=== PATIENT | female | born 2000 | race Caucasian/White ===

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

== ENCOUNTER 2019-03-19 15:01 | Emergency (ER) | payer MEDICAID ==
[~2019-03-19] VITALS: Ht 162.6 cm; Wt 75.0 kg
[2019-03-19 15:07] VITALS: Ht 162.6 cm; Wt 75.0 kg
[2019-03-19 15:40] LABS: BASOPHILS 0.6 % (0-2); EOSINOPHILS 8.3 % (0-7); HEMATOCRIT 33.2 % (36.0-48.0); IMMATURE GRANULOCYTES 0.1 % (0-5); LYMPHOCYTES 42.4 % (15-50); MCH 28.7 pg (26.0-34.0); MCHC 33.1 g/dL (31.0-37.0); MCV 86.7 fL (80.0-100.0); MEAN PLATELET VOLUME 10.3 fL (7.4-10.4); MONOCYTES 7.7 % (2-11); NEUTROPHILS 40.9 % (40-80); PLATELET COUNT 196 10x3/uL (130-400); RBC 3.83 10x6/uL (4.00-5.40); RDW 13.1 % (11.5-14.5); WBC 6.9 10x3/uL (4.8-10.8)
[2019-03-19 15:55] LABS: ALBUMIN 3.2 g/dL (3.4-5.0); ALKALINE PHOSPHATASE 55 U/L (46-116); ALT (SGPT) 15 U/L (10-68); BILIRUBIN - TOTAL 0.34 mg/dL (0.2-1.3); CALC OSMOLALITY 269 mosm/kg (275-300); CALCIUM 7.8 mg/dL (8.5-10.1); CARBON DIOXIDE 25.5 mmol/L (21.0-32.0); CHLORIDE - SERUM 105 mmol/L (98-107); CREATINE KINASE 45 UL (21-215); CREATININE - SERUM 0.7 mg/dL (0.6-1.3); GLUCOSE 92 mg/dL (74-106); POTASSIUM - SERUM 3.4 mmol/L (3.5-5.1); PROTEIN - SERUM 6.7 g/dL (6.4-8.2); SODIUM 135 mmol/L (136-145); UREA NITROGEN 13 mg/dL (7-18); eGFR NON AFRICAN AMERICAN > 90 mL/min (90-120)
[2019-03-19 17:57] LABS: UDS - AMPHET POSITIVE QUAL (NEGATIVE); UDS - BARB NEGATIVE QUAL (NEGATIVE); UDS - BENZO NEGATIVE QUAL (NEGATIVE); UDS - COCAINE NEGATIVE QUAL (NEGATIVE); UDS - OPIATE NEGATIVE QUAL (NEGATIVE); UDS - PCP NEGATIVE QUAL (NEGATIVE); UDS - THC NEGATIVE QUAL (NEGATIVE)
[2019-03-19 18:05] LABS: APPEARANCE CLEAR (CLEAR); BILIRUBIN NEGATIVE (NEGATIVE); COLOR YELLOW (YELLOW); GLUCOSE NEGATIVE (NEGATIVE); KETONE NEGATIVE (NEGATIVE); NITRITE NEGATIVE (NEGATIVE); PROTEIN NEGATIVE (NEGATIVE); UROBILINOGEN NORMAL (NORMAL)
[2019-03-19 18:06] LABS: EPITHELIAL CELLS 0-5 /hpf (0-5); WHITE CELLS - URINE 0-5 /hpf (0-5)
[2019-03-19 18:07] LABS: BACTERIA MODERATE /hpf (NONE SEEN)
[2019-03-19 18:08] LABS: HCG URINE NEGATIVE (NEGATIVE)
[2019-03-19 18:26] VITALS: BP 114/62
== END 2019-03-19 18:27 | disposition home or self-care (01) ==
LOC: D.ER 15:01
PROVIDERS: Family Medicine
DX: O26.899 Other specified pregnancy related conditions, unspecified trimester (principal); Z3A.00 Weeks of gestation of pregnancy not specified; R55 Syncope and collapse; O99.320 Drug use complicating pregnancy, unspecified trimester

== ENCOUNTER 2019-03-29 23:25 | Emergency (ER) | payer SELFPAY ==
[2019-03-29 23:25] VITALS: BMI 19.9
[2019-03-30 00:35] LABS: HEMATOCRIT 35.7 % (36.0-48.0); HEMOGLOBIN 12.4 g/dL (12-16); LYMPHOCYTES 36.5 % (15-50); MCH 29.7 pg (26.0-34.0); MCHC 34.7 g/dL (31.0-37.0); MCV 85.6 fL (80.0-100.0); MEAN PLATELET VOLUME 9.8 fL (7.4-10.4); NEUTROPHILS 54.3 % (40-80); PLATELET COUNT 201 10x3/uL (130-400); RBC 4.17 10x6/uL (4.00-5.40); RDW 12.9 % (11.5-14.5); WBC 8.3 10x3/uL (4.8-10.8)
[2019-03-30 00:42] LABS: HCG SERUM NEGATIVE (NEGATIVE)
[2019-03-30 00:48] LABS: ALBUMIN 3.8 g/dL (3.4-5.0); ALKALINE PHOSPHATASE 51 U/L (46-116); ALT (SGPT) 20 U/L (10-68); BILIRUBIN - TOTAL 0.36 mg/dL (0.2-1.3); CALC OSMOLALITY 278 mosm/kg (275-300); CALCIUM 8.7 mg/dL (8.5-10.1); CARBON DIOXIDE 23.7 mmol/L (21.0-32.0); CHLORIDE - SERUM 105 mmol/L (98-107); CREATININE - SERUM 0.7 mg/dL (0.6-1.3); GLUCOSE 94 mg/dL (74-106); POTASSIUM - SERUM 3.8 mmol/L (3.5-5.1); PROTEIN - SERUM 7.9 g/dL (6.4-8.2); SODIUM 139 mmol/L (136-145); UREA NITROGEN 15 mg/dL (7-18); eGFR NON AFRICAN AMERICAN > 90 mL/min (90-120)
[2019-03-30 00:54] LABS: HCG - QUANTITATIVE (MATERNAL) 0 mIU/mL
[2019-03-30] MEDS ORDERED: CYCLOBENZAPRINE10 MG PO (03:24)
[2019-03-30] MEDS ORDERED: IBUPROFEN800 MG PO (03:24)
[2019-03-30] MEDS ORDERED: ACETAMINOPHEN500 M1 PO (03:24)
[2019-03-30 04:58] VITALS: BP 106/77
== END 2019-03-30 04:59 | disposition home or self-care (01) ==
LOC: D.ER 23:25
PROVIDERS: Family Medicine
DX: S50.01XA Contusion of right elbow, initial encounter (principal); S50.11XA Contusion of right forearm, initial encounter; V03.90XA Pedestrian on foot injured in collision with car, pick-up truck or van, unspecified whether traffic or nontraffic accident, initial encounter; Y93.89 Activity, other specified; Y92.410 Unspecified street and highway as the place of occurrence of the external cause

== ENCOUNTER 2020-02-15 13:44 | Emergency (ER) | payer SELFPAY ==
[2019-12-05 01:04] VITALS: BMI 25.8
[~2020-02-15 13:44] MED LIST: ACETAMINOPHEN500 M1 PO; CYCLOBENZAPRINE10 MG PO; IBUPROFEN800 MG PO; KEPPRA500 MG; KEPPRA500 MG PO
== END 2020-02-29 17:48 | disposition left against medical advice (07) ==
LOC: D.ER 13:44
DX: R25.1 Tremor, unspecified (principal)

== ENCOUNTER 2020-06-25 12:08 | Emergency (ER) | payer SELFPAY ==
[~2020-06-25] VITALS: Ht 162.6 cm; Wt 90.9 kg
[2020-06-25 12:23] VITALS: BP 135/85; Ht 162.6 cm; Wt 90.9 kg
[2020-06-25 14:19] LABS: UDS - AMPHET POSITIVE QUAL (NEGATIVE); UDS - BARB NEGATIVE QUAL (NEGATIVE); UDS - BENZO NEGATIVE QUAL (NEGATIVE); UDS - COCAINE NEGATIVE QUAL (NEGATIVE); UDS - OPIATE NEGATIVE QUAL (NEGATIVE); UDS - PCP NEGATIVE QUAL (NEGATIVE); UDS - THC NEGATIVE QUAL (NEGATIVE)
[2020-06-25 15:02] LABS: BASOPHILS 0.5 % (0-2); EOSINOPHILS 2.4 % (0-7); HEMATOCRIT 35.2 % (36.0-48.0); IMMATURE GRANULOCYTES 0.2 % (0-5); LYMPHOCYTES 26.1 % (15-50); MCH 30.5 pg (26.0-34.0); MCHC 34.1 g/dL (31.0-37.0); MCV 89.3 fL (80.0-100.0); MEAN PLATELET VOLUME 10.2 fL (7.4-10.4); MONOCYTES 11.7 % (2-11); NEUTROPHILS 59.1 % (40-80); PLATELET COUNT 211 10x3/uL (130-400); RBC 3.94 10x6/uL (4.00-5.40); RDW 12.2 % (11.5-14.5); WBC 10.9 10x3/uL (4.8-10.8)
[2020-06-25 15:13] LABS: BILIRUBIN NEGATIVE (NEGATIVE); KETONE MODERATE mg/dL (NEGATIVE); NITRITE NEGATIVE (NEGATIVE); UROBILINOGEN NORMAL (NORMAL)
[2020-06-25 15:14] LABS: BACTERIA MODERATE /hpf (NONE SEEN); RED CELLS - URINE 0-5 /hpf (0-5)
[2020-06-25 15:17] LABS: CALC OSMOLALITY 278 mosm/kg (275-300); CALCIUM 8.7 mg/dL (8.5-10.1); CARBON DIOXIDE 26.8 mmol/L (21.0-32.0); CHLORIDE - SERUM 104 mmol/L (98-107); CREATININE - SERUM 0.9 mg/dL (0.6-1.3); GLUCOSE 86 mg/dL (74-106); POTASSIUM - SERUM 3.6 mmol/L (3.5-5.1); SODIUM 140 mmol/L (136-145); UREA NITROGEN 16 mg/dL (7-18); eGFR NON AFRICAN AMERICAN 84 mL/min (90-120)
[2020-06-25 15:17] LABS: HCG URINE NEGATIVE (NEGATIVE)
[2020-06-25 15:25] LABS: ALBUMIN 4.3 g/dL (3.4-5.0); ALKALINE PHOSPHATASE 60 U/L (30-120); ALT (SGPT) 46 U/L (10-68); BILIRUBIN - TOTAL 0.62 mg/dL (0.2-1.3); MAGNESIUM - SERUM 2.2 mg/dL (1.8-2.4); PROTEIN - SERUM 8.2 g/dL (6.4-8.2)
[2020-06-25] MEDS ORDERED: CLEOCIN HCL300 MG PO (16:12)
== END 2020-06-25 16:26 | disposition home or self-care (01) ==
LOC: D.ER 12:08
PROVIDERS: Emergency Medicine
DX: F15.10 Other stimulant abuse, uncomplicated (principal); L03.114 Cellulitis of left upper limb

== ENCOUNTER 2020-07-10 03:23 | Emergency (ER) | payer SELFPAY ==
[~2020-07-10] VITALS: Ht 162.6 cm; Wt 88.6 kg
[~2020-07-10 03:23] MED LIST changes: +CLEOCIN HCL300 MG PO
[2020-07-10 03:24] VITALS: Ht 162.6 cm; Wt 88.6 kg
[2020-07-10 04:03] LABS: CALC OSMOLALITY 281 mosm/kg (275-300); CALCIUM 9.2 mg/dL (8.5-10.1); CARBON DIOXIDE 24.7 mmol/L (21.0-32.0); CHLORIDE - SERUM 105 mmol/L (98-107); CREATININE - SERUM 0.9 mg/dL (0.6-1.3); GLUCOSE 105 mg/dL (74-106); POTASSIUM - SERUM 3.3 mmol/L (3.5-5.1); SODIUM 142 mmol/L (136-145); UREA NITROGEN 9 mg/dL (7-18); eGFR NON AFRICAN AMERICAN 84 mL/min (90-120)
[2020-07-10 04:06] LABS: BASOPHILS 0.5 % (0-2); EOSINOPHILS 4.2 % (0-7); HEMATOCRIT 42.4 % (36.0-48.0); HEMOGLOBIN 14.1 g/dL (12-16); IMMATURE GRANULOCYTES 0.9 % (0-5); LYMPHOCYTES 26.2 % (15-50); MCH 29.6 pg (26.0-34.0); MCHC 33.3 g/dL (31.0-37.0); MCV 89.1 fL (80.0-100.0); MEAN PLATELET VOLUME 12.7 fL (7.4-10.4); MONOCYTES 8.2 % (2-11); PLATELET COUNT 186 10x3/uL (130-400); RBC 4.76 10x6/uL (4.00-5.40); RDW 12.2 % (11.5-14.5); WBC 9.1 10x3/uL (4.8-10.8)
[2020-07-10 04:20] LABS: ALBUMIN 4.3 g/dL (3.4-5.0); ALKALINE PHOSPHATASE 68 U/L (30-120); ALT (SGPT) 27 U/L (10-68); BILIRUBIN - TOTAL 0.39 mg/dL (0.2-1.3); CKMB 1.2 U/L (0.0-3.6); CREATINE KINASE 121 UL (21-215); MAGNESIUM - SERUM 2.3 mg/dL (1.8-2.4); PROTEIN - SERUM 8.5 g/dL (6.4-8.2)
[2020-07-10 04:23] LABS: TROPONIN-I < 0.017 ng/mL (0.000-0.060)
[2020-07-10 05:37] LABS: UDS - AMPHET POSITIVE QUAL (NEGATIVE); UDS - BARB NEGATIVE QUAL (NEGATIVE); UDS - BENZO NEGATIVE QUAL (NEGATIVE); UDS - COCAINE NEGATIVE QUAL (NEGATIVE); UDS - OPIATE NEGATIVE QUAL (NEGATIVE); UDS - PCP NEGATIVE QUAL (NEGATIVE); UDS - THC POSITIVE QUAL (NEGATIVE)
[2020-07-10 05:43] LABS: BACTERIA MANY /HPF (NONE SEEN); BILIRUBIN NEGATIVE (NEGATIVE); KETONE NEGATIVE (NEGATIVE); NITRITE POSITIVE (NEGATIVE); UROBILINOGEN NORMAL mg/dL (< 2)
[2020-07-10] MEDS ORDERED: MACROBID100 MG PO (06:46)
[2020-07-10 07:01] VITALS: BP 122/85
== END 2020-07-10 07:01 | disposition home or self-care (01) ==
LOC: D.ER 03:23
PROVIDERS: Family Medicine
DX: N39.0 Urinary tract infection, site not specified (principal); M79.604 Pain in right leg; F19.10 Other psychoactive substance abuse, uncomplicated